=== PATIENT | female | born 1945 | race Caucasian/White ===

== ENCOUNTER 2019-04-06 09:38 | Outpatient (CLI) | payer MEDICARE, MEDICAID | END 2019-04-06 23:59 | disposition home or self-care (01) | LOC: ROC 09:38 | PROVIDERS: ATTEND Radiology Radiation Oncology | DX: C34.11 Malignant neoplasm of upper lobe, right bronchus or lung (principal); G89.4 Chronic pain syndrome; I25.10 Atherosclerotic heart disease of native coronary artery without angina pectoris | CPT/HCPCS: G0463 ==

== ENCOUNTER 2019-07-09 08:46 | Outpatient (CLI) | payer MEDICARE, MEDICAID | END 2019-07-09 23:59 | disposition home or self-care (01) | LOC: ROC 08:46 | PROVIDERS: ATTEND Radiology Radiation Oncology | DX: C34.11 Malignant neoplasm of upper lobe, right bronchus or lung (principal) | CPT/HCPCS: G0463 ==

== ENCOUNTER 2019-11-06 07:46 | Outpatient (CLI) | payer MEDICARE, MEDICAID | END 2019-11-06 23:59 | disposition home or self-care (01) | LOC: ROC 07:46 | PROVIDERS: ATTEND Radiology Radiation Oncology | DX: C34.11 Malignant neoplasm of upper lobe, right bronchus or lung (principal) | CPT/HCPCS: G0463 ==

== ENCOUNTER 2020-05-12 07:43 | Outpatient (CLI) | payer MEDICARE, MEDICAID | END 2020-05-12 23:59 | disposition home or self-care (01) | LOC: ROC 07:43 | PROVIDERS: ATTEND Radiology Radiation Oncology | DX: Z08 Encounter for follow-up examination after completed treatment for malignant neoplasm (principal); Z85.118 Personal history of other malignant neoplasm of bronchus and lung | CPT/HCPCS: G0463 ==